=== PATIENT | female | born 1940 | race Caucasian/White ===

== ENCOUNTER → 2017-07-07 10:08 | Outpatient (CLI) | payer MEDICARE, OTHER, SELFPAY ==
[2017-07-07 12:33] LABS: Vitamin D,25 Hydroxy 48.9 ng/mL (29.95-100.01)
[2017-07-07 12:34] LABS: Anion Gap 7 (5-15); BUN 12 mg/dL (7-18); BUN/Creat Ratio 14.2 RATIO (10-20); Calcium,Total 9.3 mg/dL (8.5-10.1); Chloride 104 mmol/L (98-107); Cholesterol 136 mg/dL (200); Creatinine, Serum 0.85 mg/dL (0.55-1.02); EST Glomerular Filtration Rate 69 mL/min (>60); Est Glom Filt Rate - Afr Amer 84 mL/min (>60); Glucose 97 mg/dL (74-106); High Density Lipoprotein 48 mg/dL; Potassium 3.9 mmol/L (3.5-5.1); Sodium Level 141 mmol/L (136-145); Triglycerides 142 mg/dL; Very Low Density Lipoprotein 28 mg/dL (5-40)
== END ==
PROVIDERS: Family Provider Family Medicine; PCP Family Medicine; Visit Provider Family Medicine
DX: Z00.00 Encounter for general adult medical examination without abnormal findings (principal); E55.9 Vitamin D deficiency, unspecified
CPT/HCPCS: 36415; 80048; 80061; 82306

== ENCOUNTER 2017-09-20 14:00 | Outpatient (RCR) | payer MEDICARE, OTHER, SELFPAY ==
--- NOTE | 2017-09-20 14:47 | HP.PTEVAL_ITS ---
Patient's Visit Information VANDANA CEJA is a 76 year old F referred to Physical Therapy by Norbert Gusman MD with a diagnosis of Dizzyness and giddiness. Date of Evaluation: 09/20/17 Physical Therapist: NASEEM AmatoT, OC - Visit Plan Duration: 1x in 2-3 weeks Plan: F/u three weeks as patient is feeling good and asymptomatic recently even with 18 hples of golf. Has been consciously increasing fluid intake.. She will call prior if she feels worsening. Will recheck vestibular and D/C if maintaining her well status. - Subjective Subjective: In July started to get dizzy. Contacted Dr. Gusman and looked into dehydration as it happened during golfing. After 9 holes would get unsteady of self, no spinning. Has let up a little bit, played 18 holes yesterday without a problem. Drank a lot of water yesterday. Also later in day sometimes has to sit down. She asked for order for PT. Not positional. No extremity symptoms. Did have wax in one ear but nothing else found at doctor's office. Sleep is good. Activities are normal just tired after some of them. No falls. Does worse in the heat. - Objective Walks normal, transfers normal and ssafe, steps reciprocal without rail. No symptoms ellicited today in the eval. - B hallpike gus and - roll test. Oculomotor: normal convergence, -skew eye deviation. Pursuit and saccades are normal, VOR is normal, VOR x 2 is normal and all asymptomatic. - head thrust. VOR walking is good. Balance is good. - Balance Scores Functional Gait Assessment Score: 30 % Disability: 0 - Goals Goal 1:: maintain full improvement and activity level Goal Time Frame: 2-4 Weeks - Rehabilitation Potential Physical Therapy Diagnosis: H/o dizzyness and giddiness. Rehabilitation Potential: Fair - Anticipated Interventions Patient/Client Instruction: Educate patient on: Condition, Plan of Care For the Purpose of:: To reduce risk of recurrence Comment: vestibular if needed. For the Purpose of:: To reduce risk of recurrence Thank you for the opportunity to evaluate your patient. For Medicare and Medicare HMO plans, please review the plan of care and approve it. It will need to be FAXED BACK to us at [phone] for Medicare purposes. Please let me know if there are questions or concerns regarding this plan of care. Physician Signature: Date:
--- NOTE | 2017-11-21 10:53 | HP.PT.NRP ---
HP - Discharge Summary (1) - Patient Information VANDANA CEJA was seen in my office for initial evaluation on 09/20/17. The following Plan of Care was established for this patient: Initial Duration: 1x in 2-3 weeks - Anticipated Interventions Patient/Client Instruction: Educate patient on: Condition, Plan of Care For the Purpose of:: To reduce risk of recurrence For the Purpose of:: To reduce risk of recurrence This patient was last seen in our office 09/20/17. Pertinent comments regarding their Physical therapy will appear below: Patient seen for eval and was doing well on that day. She was to f/u three weeks later to ensure continued abatement of symptoms. She did nto attend. That was two months ago and I will discontinue from PT at this time. At this point I will be discontinuing this patient from physical therapy. I would be happy to see this patient again in the future if found appropriate by the physician. Thank you! Norbert Pleitez, DPT, OC
== END 2017-09-20 19:00 | disposition home or self-care (01) ==
LOC: PT 14:00
PROVIDERS: Family Provider Family Medicine; PCP Family Medicine; Visit Provider Otolaryngology
DX: R42 Dizziness and giddiness (principal)
CPT/HCPCS: 97162

== ENCOUNTER → 2018-07-25 13:35 | Outpatient (CLI) | payer MEDICARE, OTHER, SELFPAY ==
[2018-07-05 10:47] VITALS: BMI 22.0
--- NOTE | 2018-07-25 13:40 | BI_ITS ---
MAMMOGRAPHY - BILATERAL SCREENING REASON FOR EXAM: Female, 77 years old. Routine annual screening examination. PERTINENT HISTORY: Non-contributory. Remote left excisional breast biopsy. TECHNIQUE: Digital bilateral breast rachel (3D mammographic acquisition) in the CC and MLO projections. 2-D mediolateral oblique (MLO) and craniocaudad (CC) views of both breasts were obtained. CAD: Full Field Digital Mammography with Computer Added Detection was performed. COMPARISON: Comparison is made with priors dated December 15, 2016 and November 25, 2015. FINDINGS: Breast Composition: There are scattered areas of fibroglandular density. There are no dominant masses or suspicious calcifications. Stable asymmetry in the deep mid lateral aspect of the left breast. This may be the site of prior excisional biopsy. Stable appearance of the small bilateral axillary lymph nodes. No other significant abnormalities are identified. There has been no significant change since the prior study. BI/SCREENING MAMM (CAD), BILAT IMPRESSION: Stable bilateral screening mammogram. Yearly follow-up mammogram recommended. (A) ASSESSMENT CATEGORY: BIRADS Category 2: Benign. A letter regarding these results will be sent to the patient by the facility within 30 days. Approximately 10% of breast cancers are not detected by mammography. A normal mammogram should not delay biopsy of a clinically suspicious abnormality. [id number] Electronically Signed: Onesimo Joyner, at 15:29 EDT , Service support ,
== END ==
PROVIDERS: Family Provider Family Medicine; PCP Family Medicine; Referring Provider Family Medicine; Visit Provider Family Medicine
DX: Z12.31 Encounter for screening mammogram for malignant neoplasm of breast (principal)
CPT/HCPCS: 77063; 77067

== ENCOUNTER 2018-10-11 08:53 | Inpatient (IN) | payer MEDICARE, OTHER, SELFPAY ==
[2018-07-25 14:52] VITALS: BMI 22.0
[2018-10-01 13:34] VITALS: BMI 22.0
--- NOTE | 2018-10-05 14:19 | EKG12_ITS ---
Test Reason : PRE OP Blood Pressure : / mmHG Vent. Rate : 068 BPM Atrial Rate : 068 BPM P-R Int : 172 ms QRS Dur : 084 ms QT Int : 418 ms P-R-T Axes : 046 039 052 degrees QTc Int : 444 ms Normal sinus rhythm ST abnormality, possible digitalis effect Abnormal ECG Confirmed by ABHI YEE ([id number]), supervising editor news reel OSCAR WILLETT ([id number]) on 10/08/2018 1:09:21 PM Referred By: Araceli Griffin Confirmed By:ABHI YEE
[2018-10-05 14:39] LABS: Hematocrit 43.1 % (37-47); Hemoglobin 14.1 g/dL (12.0-15.0); Mean Corp Hgb Conc 32.7 g/dL (32-36); Mean Corpuscular Hgb 29.9 pg (27.0-32.0); Mean Corpuscular Volume 91.5 fL (81-99); Platelet Count 343 K/mm3 (150-450); RBC Distribution Width CV 12.9 % (11.6-14.6); RBC Distribution Width SD 43.8 fl (35.1-43.9); Red Blood Count 4.71 M/mm3 (4.2-5.4); White Blood Count 6.7 K/mm3 (4.4-11.0)
[2018-10-05 14:55] LABS: Anion Gap 7 (5-15); BUN 15 mg/dL (7-18); BUN/Creat Ratio 17.7 RATIO (10-20); Calcium,Total 9.2 mg/dL (8.5-10.1); Chloride 100 mmol/L (98-107); Creatinine, Serum 0.85 mg/dL (0.55-1.02); EST Glomerular Filtration Rate 69 mL/min (>60); Est Glom Filt Rate - Afr Amer 84 mL/min (>60); Glucose 113 mg/dL (74-106); Potassium 3.5 mmol/L (3.5-5.1); Sodium Level 135 mmol/L (136-145)
[2018-10-11] VITALS (10 sets, daily range): BP systolic 95–134; BP diastolic 46–71; PULSE 60–85; RESP 16–18; TEMP 36.1–36.7; O2SAT 93–100; BMI 22.0; BMI 23.9
[2018-10-11] MEDS: Gabapentin 600 MG Tablet PO (07:25)
[2018-10-11] MEDS: Acetaminophen 500 MG Tablet 1000 MG PO ×2 (07:26→18:20)
[2018-10-11] MEDS: Celecoxib 200 MG Capsule 400 MG PO (07:26)
[2018-10-11] MEDS: Enoxaparin 40 MG/0.4 ML Syringe SC (07:27)
[2018-10-11] MEDS: Scopolamine 1mg/72hr Patch 1 PATCH TRANSDERM. (07:27)
[2018-10-11] MEDS: Lactated Ringers 1,000 ML 40 ML IV (07:32)
[2018-10-11] MEDS: dexAMETHasone 10 MG/ML Vial 8 MG IV (07:33)
[2018-10-11] MEDS: Magnesium Sulfate 4gm/100mL 4 GM/100 ML IV.SOLN. IV (07:33)
--- NOTE | 2018-10-11 07:34 | PCM.HP.STD ---
Problem List (1) Cystocele with incomplete uterovaginal prolapse Status: Acute Comment: tvh bso combo case with miguel angel History of Present Illness Date of Admission: 10/11/18 Chief Complaint: prolapse The patient is a 77 year old F presents with pelvic organ prolapse, planned hysterectomy and reconstruction. 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 Allergies cephalexin Allergy (Unknown, Verified 10/11/18 07:04) Unknown Home Medications: Ambulatory Orders Medication Instructions Recorded doxepin 10 mg capsule 10 mg PO QHS 07/05/18 simvastatin 10 mg tablet 10 mg PO QHS 07/05/18 triamterene 37.5 1 cap PO DAILY 07/05/18 mg-hydrochlorothiazide 25 mg capsule Estradiol See Rx Instructions VAGINAL MOWEFR 10/05/18 Surgical History: Surgical History (Last Reviewed 10/01/18 @ 13:34 by Inga Sparks) H/O tubal ligation Z98.51 Smoking Status: Never smoker Tobacco Use: Non-smoker Review of Systems Constitutional: Denies: Fever, Malaise Eyes: Denies: Blurred vision, Vision Change HEENT: Denies: Head Aches, Visual Changes Cardiovascular: Denies: Chest Pain, Palpitations Respiratory: Denies: Cough, Shortness of Breath, Wheezing Gastrointestinal: Denies: Abdominal Pain, Diarrhea, Nausea, Vomiting Genitourinary: Denies: Dysuria, Hematuria Musculoskeletal: Denies: Joint Pain, Muscle pain Skin: Denies: Lesions, Rash Neurological: Denies: Blurred vision, Focal weakness, Headaches Psychiatric: Denies: Anxiety, Depression Endocrine: Denies: Heat/ Cold Intolerance Hematologic/ Lymphatic: Denies: Easy Bruising, Easy Bleeding VTE Information - Inpt Only VTE Present on Admission: No - Physical Exam General: Alert, Oriented x3 HEENT: Atraumatic, Normocephalic Oral: Moist Mucosa Neck: Supple, Trachea Midline, Thyroid Normal Size and Texture Lungs: Clear to auscultation, Normal air movement Cardiovascular: Regular rate, Regular Rhythm Abdomen: Soft, Non Tender, Non-Distended Extremities: No edema Skin: No rashes Musculoskeletal: No Tenderness to Palpation of Joints or Extremities, No Muscle Wasting Neurological: Neuro grossly intact Psych/Mental Status: Normal Affect Vital Signs Temp Pulse Resp BP Pulse Ox 98.0 F 85 16 134/56 H 100 10/11/18 07:14 10/11/18 07:14 10/11/18 07:14 10/11/18 07:14 10/11/18 07:14 Oxygen Delivery Method Room Air Weight: 134 lb 11.239 oz Body Mass Index (BMI) 22.0 Assessment/Plan All Active Problems (Last Reviewed 10/01/18 @ 13:40 by Araceli Griffin MD) Cystocele with incomplete uterovaginal prolapse (Acute) Assessment & Plan Problems 1. Cystocele with incomplete uterovaginal prolapse N81.2 tvh bso combo case with miguel angel Plan discussed surgical risks including risks of anesthesia, infection, bleeding, injury to bowel, bladder or blood vessels, and patient wishes to proceed with surgery. UPDATE- I have seen the patient and performed any clinically relevant updates to the history and physical exam. Araceli Griffin MD
[2018-10-11 07:36] LABS: Bedside Glucose 219 mg/dL (70-110)
--- NOTE | 2018-10-11 08:30 | HYST_PTH ---
PATIENT: VANDANA CEJA LOC: [facility] U#:[id number] AGE/SX: 77/F ROOM: [facility]323 RE10/11/[address]: Dr. Araceli Griffin MD : 1940 BED: 1 DIS: 10/12/2018 SPEC #: [id number] RECD: 10/11/18 13:02 STATUS: HANK MENA #: [id number] SHAHLA: 10/11/18 08:[address]: Araceli Griffin DEPT: SURGICAL PATHOLOGY RECD BY: Nico Shafer ENTERED: 10/11/18 13:52 SP TYPE: HYSTERECT OTHR DR: MD Dr. Nathaniel Means MD Tissues: Uterus, NOS Procedures: Surgery Specimen Level V HEADER OPERATION: ERAS, vaginal hysterectomy, BSO PRE-OP DIAGNOSIS: Cystocele with incomplete uterovaginal prolapse status TISSUE SUBMITTED: Uterus, bilateral fallopian tubes and ovaries MICROSCOPIC DIAGNOSIS Uterus, bilateral fallopian tubes and ovaries, vaginal hysterectomy and bilateral salpingo-oophorectomy: Cervix - chronic inflammation and squamous metaplasia. Endometrium - weakly proliferative endometrium with extensive cystic changes. Myometrium - intramural leiomyoma with extensive calcification (3 cm in diameter). - Focal adenomyosis. Bilateral fallopian tubes - no pathologic diagnosis. Bilateral ovaries - no pathologic diagnosis. SJ:latoya 10/17/18 MICROSCOPIC DESCRIPTION Slides are reviewed. GROSS DESCRIPTION Received in fixative is one container labeled with the patient's name and designated uterus. The specimen consists of a uterus with attached cervix measuring 9 x 5.5 x 4.2 cm and weighing 85 gm. The uterus has been previously opened in its anterior portion. The ectocervix is grossly unremarkable. The cervical os is oval in contour. The endocervical canal measures 3.4 cm in length and is grossly unremarkable. The triangular endometrial cavity measures 4.2 x 3.3 cm. The velvety, light ventura endometrium measures 0.2 cm in average thickness. The anterior myometrium contains a firm, calcified pink-yellow nodule measuring 3 cm in diameter. The cut surface of this calcified nodule is yellow-white in color. No soft tissue is evident within the center of the lesion. Also present free in the container are two unoriented fallopian tube fragments and ovaries. Both fallopian tubes contain normal fimbriated ends. Both fallopian tubes have an average length of 4 cm and maximal diameter of 0.7 cm. Both fallopian tubes are disrupted consistent with previous tubal ligation. Each ovary measures 1.5 x 1 x 0.8 cm. Sections reveal unremarkable cut surfaces. Baked Goods Stock Clerk sections are submitted in 10 cassettes as follows: 1 - anterior cervix, 2 - posterior cervix, 3 & 4 - anterior uterine wall, 5 & 6 - posterior uterine wall, 7 & 8 - calcified myometrial nodule after decalcification, 9 - one fallopian tube and ovary, 10 - second fallopian tube and ovary. / AM:latoya 10/11/18 TC:1 CPT: 46958,62284
--- NOTE | 2018-10-11 08:44 | PCM.OPRPT ---
Problem List (1) Cystocele with incomplete uterovaginal prolapse Status: Acute Comment: tvh bso combo case with miguel angel (2) Stress incontinence Status: Acute (3) Vaginal atrophy Status: Acute Report of Operation Date of Procedure: 10/11/18 Pre-Operative Diagnosis: incomplete uterovaginal prolapse, stress urinary incontinence, vaginal atrophy Post-Operative Diagnosis: same Surgery/Procedure Performed:: anterior repair, sacrospinous ligament fixation, perineoplasty, midurethral sling and cystoscopy with right ureteral catheterization. Description of Surgical Findings:: Anterior repair, perineoplasty, Altis mid urethral sling, right sacrospinous ligament fixation. On cystoscopy after the sling, the right ureter was intubated with a 5 Burkinan whistle-tip catheter and good urine output was achieved. On the left side the patient's ureteral orifice was very small and was unable to be intubated. A urine jet was observed from this ureteral orifice. Type of Anesthesia:: General Special Medications: clindamycin and gentamicin, Methylene blue. Estimated Blood Loss (mL): 15cc Description of Procedure: The patient is a 77-year-old female with uterovaginal prolapse who underwent evaluation in the office with urodynamics and cystoscopy. After obtaining informed consent, she was taken to the operating room for surgical intervention in combination with Dr. Griffin. The patient was taken to the operating room and placed on the operating room table. Anesthesia monitored the head, neck, airway, IV access and vital signs throughout the case. Once anesthesia was appropriately administered the patient was prepped and draped in usual sterile fashion. She was placed into exaggerated dorsal lithotomy in Trendelenburg position. A 16 Burkinan Dotson catheter was inserted and her urinary bladder was drained. The case was then turned over to Dr. Griffin and a vaginal hysterectomy and bilateral oophorectomy were performed. Dr. Griffin then closed the vaginal cuff and the case was turned to nv. The anterior vaginal wall was injected submucosally with vasopressin for hydrostatic dissection and hemostatic control. A midline vertical incision approximately 2 cm in length was then made. Both sharp and blunt dissection was performed until the pubocervical fascia was identified bilaterally. On the right side dissection continued until the initial spine was palpable in the sacral spinous ligament was identified and freed from surrounding tissues. The Harpreet SlimLine was then used to gain access to the right sacrospinous ligament and this was brought through full-thickness fashion in the apex of the vagina. Attention was then turned toward the pubocervical fascia which was brought together in a 2 layer closure with 2-0 Vicryl suture. The anterior vaginal wall was then closed with running 2-0 Vicryl. Attention was then turned towards the perineum. The posterior vaginal wall defect was not as substantial as the anterior vaginal wall defect. Attention was turned toward the perineal body. The overlying submucosa was dissected away and the rectovaginal fascia was brought together in a symmetric fashion giving support to the perineal body. The vaginal mucosa was then closed over the repair using 2-0 Vicryl in running interlocking fashion. At this time the mid urethra was identified and once again injected submucosally. A midline vertical 1 cm incision was made in both sharp and blunt dissection ensued on either side of the urethra with care being taken to avoid entrance into the urethra. Using the trochars and the alto's mid urethral sling, the tines were passed bilaterally into the obturator complexes without difficulty. The sling was tensioned against the urethra without pressure. The tensioning suture was then cut and the mucosa was closed using running interlocking 2-0 Vicryl. At this time the patient had been given intravenous methylene blue but remained dehydrated as there was not much urine in her Dotson catheter bag. The catheter was removed and a cystourethroscopy revealed no entry into the urethra or the urinary bladder with any foreign body including suture or mesh. At this time no urine was seen coming from either ureteral orifice and fluid administration increased. A 5 Burkinan whistle-tip catheter was inserted without difficulty to 25 cm and good urine was seen coming from the ureteral catheter. On the patient's left side the positioning of the ureteral orifice and its size made access to the ureter difficult. I was unable to pass a whistle-tip or 8.035 Glidewire into the ureteral orifice. Upon waiting, 2 ureteral jets were observed from this ureter. At this time I feel confident that the ureter is intact. The Dotson catheter was replaced to the vagina was packed with vaginal packing and Premarin cream. The patient was cleaned and awakened and taken the recovery room in good condition. There were no complications during the procedure. Grafts/Implants Used: Altis mid urethral sling - Complications None - Admit VTE Documentation VTE Present on Admission: Yes VTE Mechan Device Prophylaxis: SCD's VTE Pharm Prophylaxis ordered?: Yes
--- NOTE | 2018-10-11 08:46 | DCINST_ITS ---
Discharge Diet: No Restrictions Discharge Activity: May not drive while taking narcotic pain medications., May Shower Additional Activity Instructions:: no strenuous activity, no lifting over 5 pounds, no driving for 2 weeks, no exercise, nothing per vagina except estrogen cream, no intercourse Call your doctor if you observe: Fever of 101 or Higher, Inability to urinate, Inability to have a bowel movement, Shortness of breath, Chest pain, Calf discomfort, Uncontrolled pain Allergies/Adverse Reactions: Allergies cephalexin Allergy (Unknown, Verified 10/11/18 13:24) Diarrhea GAVE HER CDIFF Medications to take at Discharge doxepin 10 mg capsule 10 mg PO QHS 07/05/18 simvastatin 10 mg tablet 10 mg PO QHS 07/05/18 triamterene 37.5 mg-hydrochlorothiazide 25 mg capsule 1 cap PO DAILY 07/05/18 Estradiol See Rx Instructions VAGINAL MOWEFR 10/05/18 Ibuprofen [Motrin] 600 mg PO Q6H PRN PRN #30 tab 10/11/18 Oxycodone HCl/Acetaminophen [Percocet 5-325] 1 - 2 tab PO Q4H PRN PRN 7 Days #15 tab 10/11/18 The following prescriptions were given: Ibuprofen [Motrin] 600 mg PO Q6H PRN PRN #30 tab PRN Reason: Pain Transmission Status: Received by [facility] Oxycodone HCl/Acetaminophen [Percocet 5-325] 1 - 2 tab PO Q4H PRN PRN 7 Days #15 tab PRN Reason: Pain Transmission Status: Received by [facility] Primary Care Physician: Nathaniel Escamilla MD [Primary Care Provider] - Test Results: Test results from this visit will be discussed in further detail at your follow- up appointment, if applicable. Please Follow Up With: Anna Muñoz MD When: call office for appt Proposed Discharge Date: 10/12/18
--- NOTE | 2018-10-11 08:51 | PCM.OPRPT ---
Problem List (1) Cystocele with incomplete uterovaginal prolapse Status: Acute Comment: tvh bso combo case with miguel angel Report of Operation Date of Procedure: 10/11/18 Pre-Operative Diagnosis: prolapse Post-Operative Diagnosis: same Surgery/Procedure Performed:: tvh bso Description of Surgical Findings:: prolapsed uterus property management coordinator: Anna Michelle Type of Anesthesia:: General Special Medications: none Specimen's removed: uterus tubes ovaries Drains: blunt Estimated Blood Loss (mL): 100 Fluids Replaced: crystalloid Description of Procedure: Patient was taken to the operating room and was placed under general anesthesia was prepped and draped in normal sterile fashion in the dorsal lithotomy position. Preoperative antibiotics and SCDs and Blunt catheter was placed inside the bladder. Weighted speculum was placed in the vagina and the anterior and posterior lip of the cervix was grasped with 2 Abby clamps and circumferentially injected with dilute vasopressin. A circumferential incision was made with a scalpel and the posterior cul-de-sac was entered into sharply and a longneck speculum was placed. The anterior cul-de-sac was also dissected down and entered into sharply and the uterosacral ligaments were clamped cut and suture ligated bilaterally followed by the cardinal ligaments which were Clamped cut and suture ligated bilaterally with 0 Monocryl. The uterus serially descended and progressive bites were taken bilaterally up to the level of the utero-ovarian ligament bilaterally which was clamped transected and double ligated with 0 Monocryl suture and 0 Vicryl free tie. Bilateral fallopian tubes and ovaries were well visualized and noted be within normal limits and the bilateral fallopian tubes and ovaries were transected across the base with a chayito clamp and removed and sutured with 0 monocryl and Vicryl suture. Excellent hemostasis was noted. The vagina was closed with [id number] 0 Vicryl pop offs including the posterior and anterior peritoneum in the reapproximation. Excellent hemostasis was noted. at this point the procedure was turned over to dr michelle please see her dictation for additional details. Grafts/Implants Used: sling - Complications none - Admit VTE Documentation VTE Present on Admission: No
--- NOTE | 2018-10-11 08:59 | DCINST_ITS ---
Discharge Diet: No Restrictions Discharge Activity: May not drive while taking narcotic pain medications., May Shower May resume sexual activity in: 6-8 weeks Additional Activity Instructions:: no strenuous activity, no lifting over 5 pounds, no driving for 2 weeks, no exercise, nothing per vagina except estrogen cream, no intercourse Call your doctor if your incision/area has: Continuous Slow Oozing, Sudden Increased Bleeding, Increased Pain/ Swelling, Increased Redness, Foul Smelling Discharge Call your doctor if you observe: Fever of 101 or Higher, Inability to urinate, Inability to have a bowel movement, Shortness of breath, Chest pain, Calf discomfort, Uncontrolled pain Allergies/Adverse Reactions: Allergies cephalexin Allergy (Unknown, Verified 10/11/18 07:04) Unknown Medications to take at Discharge doxepin 10 mg capsule 10 mg PO QHS 07/05/18 simvastatin 10 mg tablet 10 mg PO QHS 07/05/18 triamterene 37.5 mg-hydrochlorothiazide 25 mg capsule 1 cap PO DAILY 07/05/18 Estradiol See Rx Instructions VAGINAL MOWEFR 10/05/18 Primary Care Physician: Nathaniel Escamilla MD [Primary Care Provider] - Test Results: Test results from this visit will be discussed in further detail at your follow- up appointment, if applicable. Please Follow Up With: Anna Muñoz MD When: call office for appt
[2018-10-11] MEDS: Lubricating Jelly 60 GM Tube 30 GM TOPICAL (09:00)
[2018-10-11] MEDS: Vasopressin 20 UNITS/ML Vial (11:00)
[2018-10-11] MEDS: Estrogens,Conj. 1 Tube 1 DOSE (11:30)
[2018-10-11 11:50] LABS: Bedside Glucose 142 mg/dL (70-110)
--- NOTE | 2018-10-11 13:46 | NURSING ---
Clear liquids given to pt. Has drank half of a Liter of water already my mouth is dry. Transitional Diet menu given and explained that if she can keep clear liquids down then pt can order from Transitional menu.
[2018-10-11] MEDS: Lactated Ringers 1,000 ML 70 ML IV (14:31)
--- NOTE | 2018-10-11 14:55 | NURSING ---
Pt up to chair at this time. felt good. Pt stood at edge of chair for a few minutes, felt Rt leg was aching but with movement was feeling better.
--- NOTE | 2018-10-11 15:52 | NURSING ---
Walking jimenez with CREATIVE DIRECTOR at this time.
[2018-10-11] MEDS: Triamterene 37.5MG/Hctz 25MG Capsule 1 CAP PO (16:04)
[2018-10-11 16:26] LABS: Bedside Glucose 191 mg/dL (70-110)
--- NOTE | 2018-10-11 17:18 | NURSING ---
This nurse called Dr. Vincent regarding pts blood sugar of 191. Someone else besides Dr. Vincent answered and said, can she call you back in 5 min. This nurse will wait for her call back.
--- NOTE | 2018-10-11 18:44 | NURSING ---
Went for another walk in the [place]imenez. Second time today.
[2018-10-11] MEDS: Atorvastatin Calcium 10 MG Tablet 5 MG PO (22:04)
[2018-10-11] MEDS: Doxepin Hydrochloride 10 MG Capsule PO (22:04)
[2018-10-11] MEDS: Docusate Sodium 100 MG Capsule PO (22:05)
[2018-10-12 02:28] VITALS: BP 123/59; PULSE 64; RESP 16; TEMP 36.5; O2SAT 99
[2018-10-12] MEDS: Lactated Ringers 1,000 ML 70 ML IV (05:15)
[2018-10-12 06:34] LABS: Hematocrit 34.5 % (37-47); Mean Corp Hgb Conc 34.8 g/dL (32-36); Mean Corpuscular Hgb 30.5 pg (27.0-32.0); Mean Corpuscular Volume 87.8 fL (81-99); Mean Platelet Vol. 9.6 fl (6.2-12.0); Platelet Count 288 K/mm3 (150-450); RBC Distribution Width CV 12.3 % (11.6-14.6); RBC Distribution Width SD 39.5 fl (35.1-43.9); Red Blood Count 3.93 M/mm3 (4.2-5.4); White Blood Count 19.4 K/mm3 (4.4-11.0)
--- NOTE | 2018-10-12 08:15 | PCM.PN.GU ---
Physical Exam Subjective: Feeling great this morning! Has not needed any pain medications, has ambulated a few times already and is anxious to get home today. She has taken an oral fluids and had a turkey sandwich for dinner last night. No nausea or vomiting. The Tylenol is making her feel a little dizzy. - Physical Exam Vital Signs Temp 97.7 F L 10/12/18 02:28 Pulse 64 10/12/18 02:28 Resp 16 10/12/18 02:28 BP 123/59 H 10/12/18 02:28 Pulse Ox 99 10/12/18 02:28 Intake & Output 10/10/18 10/11/18 10/12/18 23:59 23:59 23:59 Intake Total 4142 / 4879 1522 / 1522 Output Total 575 / 2225 2750 / 2750 Balance 3567 / 2654 -1228 / -1228 Weight: 66.224 kg Intake: Oral 1541 / 1841 700 / 700 IV fluid/meds 2601 / 3038 822 / 822 IV #3 2300 / 2300 Output: Urine 575 / 2225 2750 / 2750 General: Alert, Oriented x3, Cooperative, No apparent distress HEENT: Atraumatic, Normocephalic Oral: Moist Mucosa Neck: Supple, Trachea Midline Lungs: Normal air movement Cardiovascular: Regular rate Abdomen: Soft, Non Tender, - - Dotson catheter and vaginal tacking removed without an issue. The urine in the Dotson is clear Rectal: Exam deferred Skin: No rashes Neurological: Cranial nerves II-XII grossly intact Laboratory Tests Past 24 Hrs 10/12/18 06:24 WBC 19.4 H RBC 3.93 L Hgb 12.0 Hct 34.5 L MCV 87.8 MCH 30.5 MCHC 34.8 RDW Std Deviation 39.5 RDW Coeff of Marquita 12.3 Plt Count 288 MPV 9.6 Medical Necessity - Tobacco Use Smoking Status: Never smoker Tobacco Use: Non-smoker Assessment/Plan All Active Problems (Last Reviewed 10/01/18 @ 13:40 by Araceli Griffin MD) Stress incontinence (Acute) Vaginal atrophy (Acute) Cystocele with incomplete uterovaginal prolapse (Acute) Await void with PVR Home today with Bactrim for 3 days and continuing estrogen cream
[2018-10-12 09:48] VITALS: BP 99/47; PULSE 69; RESP 16; TEMP 36.7; O2SAT 97
[2018-10-12] MEDS: Docusate Sodium 100 MG Capsule PO (10:00)
[2018-10-12] MEDS: Enoxaparin 40 MG/0.4 ML Syringe SC (10:03)
[2018-10-12 11:23] VITALS: BP 115/52; PULSE 58; RESP 16; TEMP 36.6; O2SAT 100
[2018-10-12] MEDS: Triamterene 37.5MG/Hctz 25MG Capsule 1 CAP PO (11:25)
--- NOTE | 2018-10-12 12:49 | CASEMGMT ---
RN CM Assessment Presentation: Cystocele with incomplete uterovaginal prolapse Intro role of CM and purpose of RN CM assessment. Demographics, PCP and Pharmacy verified. PCP: Dr. Nathaniel Escamilla Specialists: Dr. Muñoz Preferred Pharmacy: [facility] Insurance: [facility] Prescription Benefit: yes LNOK: Attila Torres Living Arrangements: Lives independently. No care needs identified. Family can assist on dc if needed. Transportation: drives, however pt states can drive if needed. DME: none HHC: none Patient DC goals: Home DC PLAN: Kevin HE RN ACM
--- NOTE | 2018-10-12 13:53 | PCM.PN.OB ---
Patient Problems: Active and Suspected Problems (Last Reviewed 10/01/18 @ 13:40 by Araceli Griffin MD) Stress incontinence (Acute) Vaginal atrophy (Acute) Subjective: doing well pain controlled - Physical Exam General: Alert, Oriented x3 Vital Signs Temp Pulse Resp BP Pulse Ox 97.8 F 58 L 16 115/52 L 100 10/12/18 11:23 10/12/18 11:23 10/12/18 11:23 10/12/18 11:23 10/12/18 11:23 Oxygen Flow Rate (L/min) 2 Oxygen Delivery Method Room Air Weight: 146 lb Body Mass Index (BMI) 23.9 Intake and Output for Last 24 Hours 10/10/18 10/11/18 10/12/18 23:59 23:59 23:59 Intake Total 4142 / 4879 2890 / 2890 Output Total 575 / 2225 3150 / 3150 Balance 3567 / 2654 -260 / -260 Laboratory Tests Past 24 Hrs 10/12/18 06:24 WBC 19.4 H RBC 3.93 L Hgb 12.0 Hct 34.5 L MCV 87.8 MCH 30.5 MCHC 34.8 RDW Std Deviation 39.5 RDW Coeff of Marquita 12.3 Plt Count 288 MPV 9.6 POC Glucose 10/11/18 16:18 POC Glucose 191 H Medical Necessity - Tobacco Use Smoking Status: Never smoker Tobacco Use: Non-smoker Assessment/Plan All Active Problems (Last Reviewed 10/01/18 @ 13:40 by Araceli Griffin MD) Stress incontinence (Acute) Vaginal atrophy (Acute) Cystocele with incomplete uterovaginal prolapse (Acute) s/p tvh bso routine care pr home
[2018-10-12 14:02] VITALS: BP 118/60; PULSE 82; RESP 16; TEMP 36.7; O2SAT 100
== END 2018-10-12 14:00 | disposition home or self-care (01) | DRG 743 ==
LOC: MS3 10-12 07:33
PROVIDERS: Urology; Admitting Provider Obstetrics & Gynecology; Family Provider Family Medicine; PCP Family Medicine; Referring Provider Obstetrics & Gynecology; Visit Provider Obstetrics & Gynecology
PROC: 0UT97ZZ Resection of Uterus, Via Natural or Artificial Opening (ICD-10-PCS; CPT 58260; principal; 2018-10-11 08:10)
PROC: 0JQC0ZZ Repair Pelvic Region Subcutaneous Tissue and Fascia, Open Approach (ICD-10-PCS; CPT 57260; 2018-10-11 08:10)
DX: N81.2 Incomplete uterovaginal prolapse (principal); N95.2 Postmenopausal atrophic vaginitis; N39.3 Stress incontinence (female) (male); H81.09 Meniere's disease, unspecified ear; E78.00 Pure hypercholesterolemia, unspecified; Z98.51 Tubal ligation status; N80.0 Endometriosis of uterus; N72 Inflammatory disease of cervix uteri; D26.1 Other benign neoplasm of corpus uteri
CPT/HCPCS: 36415; 80048; 82962; 85027; 86850; 86900; 88307; 93005; J7120; C1758; J2405; Q9968

== ENCOUNTER → 2018-12-11 09:18 | Outpatient (CLI) | payer MEDICARE, OTHER, SELFPAY ==
[2018-10-30 09:23] VITALS: BMI 23.9
[2018-12-11 10:30] LABS: Cholesterol 154 mg/dL (200); High Density Lipoprotein 42 mg/dL; Triglycerides 246 mg/dL; Very Low Density Lipoprotein 49 mg/dL (5-40)
== END ==
PROVIDERS: Family Provider Family Medicine; PCP Family Medicine; Referring Provider Family Medicine; Visit Provider Family Medicine
DX: E78.5 Hyperlipidemia, unspecified (principal)
CPT/HCPCS: 36415; 80061

== ENCOUNTER → 2019-10-14 14:34 | Outpatient (CLI) | payer MEDICARE, OTHER, SELFPAY ==
[2018-10-30 09:23] VITALS: BMI 23.9
--- NOTE | 2019-10-14 14:37 | BI_ITS ---
MAMMOGRAPHY - BILATERAL SCREENING 3-D TOMOSYNTHESIS REASON FOR EXAM: Female, 78 years old. Routine screening PERTINENT HISTORY: NO FAM HX -- QUIT PREMARIN CR -- BILAT KERATOSIS MARKED -LARGEST -- LT EXC BX 20+ YRS AGO -- LOST 10#. TECHNIQUE: 2-D mammograms and 3-D Tomosynthesis of the breast (s) were performed. CAD was performed. COMPARISON: 07/25/2018 FINDINGS: The breast composition is composed of scattered fibroglandular density. Scattered benign calcifications are seen. No dense spiculated masses or suspicious microcalcifications are identified. No architectural distortion is identified. There is no skin thickening or retraction. There has been no significant change since the prior study. BI/SCREEN MAMM (CAD) W/EVELYN BILAT IMPRESSION: No mammographic signs of malignancy. Routine yearly mammograms recommended. ASSESSMENT CATEGORY: BIRADS Category 1: Negative. A letter regarding these results will be sent to the patient by the facility within 30 days. FOLLOW UP RECOMMENDATION: Yearly follow up mammogram recommended. (A) Approximately 10% of breast cancers are not detected by mammography. A normal mammogram should not delay biopsy of a clinically suspicious abnormality. Electronically Signed: Eliseo Motta MD at 16:19 EDT , Service support ,
== END ==
PROVIDERS: PCP Family Medicine; Referring Provider Family Medicine; Visit Provider Family Medicine
DX: Z12.31 Encounter for screening mammogram for malignant neoplasm of breast (principal)
CPT/HCPCS: 77063; 77067

== ENCOUNTER → 2020-07-17 14:28 | Outpatient (CLI) | payer MEDICARE, OTHER, SELFPAY ==
[2018-10-30 09:23] VITALS: BMI 23.9
[2020-07-17 17:44] LABS: BUN 14 mg/dL (7-18); BUN/Creat Ratio 18.5 RATIO (10-20); Calcium,Total 9.4 mg/dL (8.5-10.1); Chloride 98 mmol/L (98-107); Cholesterol 150 mg/dL (200); Creatinine, Serum 0.76 mg/dL (0.55-1.02); EST Glomerular Filtration Rate 78 mL/min (>60); Est Glom Filt Rate - Afr Amer 95 mL/min (>60); Glucose 95 mg/dL (74-106); Potassium 3.9 mmol/L (3.5-5.1); Sodium Level 135 mmol/L (136-145); Triglycerides 129 mg/dL
[2020-07-17 17:45] LABS: Anion Gap 7 (5-15); High Density Lipoprotein 56 mg/dL; Thyroid Stim Hormone (TSH) 1.93 uIU/mL (0.358-3.74); Very Low Density Lipoprotein 26 mg/dL (5-40)
[2020-07-23 12:31] LABS: Vitamin D,25 Hydroxy 46.3 ng/mL
== END ==
PROVIDERS: PCP Family Medicine; Referring Provider Family Medicine; Visit Provider Family Medicine
DX: Z00.00 Encounter for general adult medical examination without abnormal findings (principal); E55.9 Vitamin D deficiency, unspecified; E78.5 Hyperlipidemia, unspecified
CPT/HCPCS: 36415; 80048; 80061; 82306; 84443

== ENCOUNTER → 2020-11-11 13:46 | Outpatient (CLI) | payer MEDICARE, OTHER, SELFPAY ==
[2018-10-30 09:23] VITALS: BMI 23.9
--- NOTE | 2020-11-11 13:48 | BI_ITS ---
MAMMOGRAPHY - BILATERAL SCREENING REASON FOR EXAM: Female, 79 years old. Routine annual screening examination. PERTINENT HISTORY: Non-contributory. Remote left excisional breast biopsy. TECHNIQUE: Digital bilateral breast evelyn (3D mammographic acquisition) in the CC and MLO projections. 2-D mediolateral oblique (MLO) and craniocaudad (CC) views of both breasts were obtained. CAD: Full Field Digital Mammography with Computer Added Detection was performed. COMPARISON: Comparison is made with prior examination 10/14/2019 and 07/25/2018. FINDINGS: Breast Composition: There are scattered areas of fibroglandular density. There are no dominant masses or suspicious calcifications. Stable benign appearing bilateral axillary lymph nodes. No other significant abnormalities are identified. There has been no significant change since the prior study. BI/SCRN MAMM (CAD)W/EVELYN BILAT IMPRESSION: Stable bilateral screening mammogram. Yearly follow-up mammogram recommended. (A) ASSESSMENT CATEGORY: BIRADS Category 2: Benign. A letter regarding these results will be sent to the patient by the facility within 30 days. Approximately 10% of breast cancers are not detected by mammography. A normal mammogram should not delay biopsy of a clinically suspicious abnormality. [id number] Electronically Signed: Onesimo Joyner MD at 14:38 EDT , Service support ,
== END ==
PROVIDERS: PCP Family Medicine; Referring Provider Family Medicine; Visit Provider Family Medicine
DX: Z12.31 Encounter for screening mammogram for malignant neoplasm of breast (principal)
CPT/HCPCS: 77063; 77067

== ENCOUNTER → 2021-08-27 | Outpatient (CLI) | payer MEDICARE, OTHER, SELFPAY ==
[2021-08-27 10:36] LABS: Anion Gap 8 (5-15); BUN 13 mg/dL (7-18); BUN/Creat Ratio 16.8 RATIO (10-20); Calcium,Total 9.6 mg/dL (8.5-10.1); Chloride 102 mmol/L (98-107); Creatinine, Serum 0.77 mg/dL (0.55-1.02); EST Glomerular Filtration Rate 76 mL/min (>60); Est Glom Filt Rate - Afr Amer 92 mL/min (>60); Glucose 111 mg/dL (74-106); Potassium 3.6 mmol/L (3.5-5.1); Sodium Level 139 mmol/L (136-145)
== END | disposition home or self-care (01) ==
LOC: MFPLAB 08:24
PROVIDERS: PCP Family Medicine; Visit Provider Family Medicine
DX: Z00.00 Encounter for general adult medical examination without abnormal findings (principal)
CPT/HCPCS: 36415; 80048

== ENCOUNTER → 2021-12-07 | Outpatient (CLI) | payer MEDICARE, OTHER, SELFPAY ==
--- NOTE | 2021-12-07 13:16 | BI_ITS ---
MAMMOGRAPHY - BILATERAL SCREENING REASON FOR EXAM: Female, 80 years old. Routine annual screening examination. PERTINENT HISTORY: Non-contributory. Remote left excisional breast biopsy. TECHNIQUE: Digital bilateral breast rachel (3D mammographic acquisition) in the CC and MLO projections. 2-D mediolateral oblique (MLO) and craniocaudad (CC) views of both breasts were obtained. CAD: Full Field Digital Mammography with Computer Added Detection was performed. COMPARISON: Comparison is made with prior study dated 11/11/2020 and 10/14/2019 FINDINGS: Breast Composition: There are scattered areas of fibroglandular density. There are no dominant masses or suspicious calcifications. Stable benign-appearing bilateral axillary lymph nodes. No other significant abnormalities are identified. There has been no significant change since the prior study. BI/SCREENING MAMM (CAD), BILAT IMPRESSION: Stable bilateral screening mammogram. Yearly follow-up mammogram recommended. (A) ASSESSMENT CATEGORY: BIRADS Category 2: Benign. A letter regarding these results will be sent to the patient by the facility within 30 days. Approximately 10% of breast cancers are not detected by mammography. A normal mammogram should not delay biopsy of a clinically suspicious abnormality. [id number] Electronically Signed: Onesimo Joyner MD at 14:59 EDT ,
--- NOTE | 2021-12-07 13:16 | BD_ITS ---
STUDY: DUAL ENERGY X-RAY ABSORPTIOMETRY / DXA REASON FOR EXAM: Female, 80 years old. M80.89 TECHNIQUE: Bone Mineral Density (BMD) measurements of lumbar spine and bilateral hips were obtained. COMPARISON: Comparison is made with prior study dated 11/25/2015. FINDINGS: Lumbar Spine (L1-L4): g/cm2 (0.990) / T-score (-0.6) / Z-score (2.2) Findings are suggestive of normal bone density with a low fracture risk. Left Femur Total: g/cm2 (0.764) / T-score (-1.5) / Z-score (0.7) Left Femoral Neck: g/cm2 (0.654) / T-score (-1.8) / Z-score (0.6) Right Femur Total: g/cm2 (0.796) / T-score (-1.2) / Z-score (0.9) Right Femoral Neck: g/cm2 (0.694) / T-score (-1.4) / Z-score (0.9) The T-Scores on the most recent prior examination were: Lumbar Spine (L1-L4): There has been worsening of bone density since the previous examination. Left Femur Total: which represents a worsening of 9.3%. Right Femur Total: which represents a worsening of 6.5%. BD/Dexa Bone Density Study IMPRESSION: The patient is considered osteopenic as outlined below according to World [employer] Organization (WHO) criteria with a moderate fracture risk. There has been worsening of bone density since the previous examination. Reference Information: The T-score is the number of standard deviations above or below the standard which is normal for young adults at their peak bone mineral density. The World Health Organization (WHO) interprets the T-scores as follows: Above -1 Normal bone density Between -1 and -2.5 Osteopenia Equal to / or below -2.5 Osteoporosis As a practical clinical guideline, osteopenia may be graded as follows: Mild -1 through -1.5 Moderate -1.6 through -2.0 Severe -2.1 through -2.4 The Z-score is the number of standard deviations above or below age-matched controls. A Z-score of less than -1.5 would be considered abnormal. References: 1. NIH Osteoporosis and Related Bone Diseases www osteo.org 2. International Society for Clinical Densitometry www iscd.org 3. National Osteoporosis Foundation www nof.org Electronically Signed: Onesimo Joyner MD at 10:20 EDT ,
== END | disposition home or self-care (01) ==
LOC: OPBD 13:15
PROVIDERS: PCP Family Medicine; Visit Provider Family Medicine
DX: Z12.31 Encounter for screening mammogram for malignant neoplasm of breast (principal); M85.89 Other specified disorders of bone density and structure, multiple sites; Z92.89 Personal history of other medical treatment
CPT/HCPCS: 77067; 77080

== ENCOUNTER → 2022-08-26 | Outpatient (CLI) | payer MEDICARE, OTHER, SELFPAY ==
[2022-08-26 11:18] LABS: Anion Gap 3 (5-15); BUN 16 mg/dL (7-18); BUN/Creat Ratio 19.1 RATIO (10-20); Calcium,Total 9.8 mg/dL (8.5-10.1); Chloride 103 mmol/L (98-107); Cholesterol 152 mg/dL (200); Creatinine, Serum 0.84 mg/dL (0.55-1.02); EST Glomerular Filtration Rate 69 mL/min (>60); Est Glom Filt Rate - Afr Amer 84 mL/min (>60); Glucose 103 mg/dL (74-106); High Density Lipoprotein 53 mg/dL; Sodium Level 136 mmol/L (136-145); Triglycerides 170 mg/dL; Very Low Density Lipoprotein 34 mg/dL (5-40)
== END | disposition home or self-care (01) ==
LOC: MFPLAB 08:31
PROVIDERS: PCP Family Medicine; Visit Provider Family Medicine
DX: Z00.00 Encounter for general adult medical examination without abnormal findings (principal)
CPT/HCPCS: 36415; 80048; 80061

== ENCOUNTER → 2022-10-18 | Outpatient (CLI) | payer MEDICARE, OTHER, SELFPAY | END | disposition home or self-care (01) | LOC: LABSPEC 15:18 | PROVIDERS: PCP Family Medicine; Referring Provider Family Medicine; Visit Provider Family Medicine | DX: N39.0 Urinary tract infection, site not specified (principal) | CPT/HCPCS: 87077; 87086; 87088; 87186 ==

== ENCOUNTER 2022-12-08 13:00 | Outpatient (RCR) | payer MEDICARE, OTHER, SELFPAY ==
--- NOTE | 2022-12-01 12:46 | HP.PTDCSUM ---
Discharge Summary D/C summary: It has been my pleasure to treat VANDANA CEJA referred by Dr. Isaiah Sims MD, with the diagnosis of vertigo for a total of 1 visit(s). Discharge Date: Please see the following information for a summary of their discharge status. Goals Goal 1:: abolish dizzyness with turning in bed Goal 2:: I management of condition Goal 3:: Pt feel 100% better wtih dizzyness and golf without symptoms Plan Plan: 1-2x/week for 2-4 as needed for positional monitorring and [id number] as needed. Next check R roll and HD and treat as needed. is rolling R in bed still a problem. D/C Information d/c sentence: If there are questions or concerns regarding this patient's physical therapy, please feel free to call me at [phone]. Thank you for the referral of this patient. Sincerely, Norbert Pleitez, DPT, OCS, CSCS Balance/Gait/Functional tests Balance/Special Test Scores Functional Gait Assessment Score: 29 % Disability: 3.3400 Dizziness Score: 32
--- NOTE | 2022-12-08 13:01 | HP.PTEVAL_ITS ---
Patient's Visit Information Visit Information Visit Information: VANDANA CEJA is a 81 year old F referred to Physical Therapy by Dr. Isaiah Sims MD with a diagnosis of vertigo. Date of Evaluation: 12/01/22 Physical Therapist: Norbert Pleitez, DPT, OCS, CSCS Visit Plan Frequency: 1-2x /Week Duration: 2-4 Weeks Plan: 1-2x/week for 2-4 as needed for positional monitorring and [id number] as needed. Next check R roll and HD and treat as needed. is rolling R in bed still a problem. Subjective Subjective: Vertigo is intermittent for her. It goes away for a while and then comes back. This latest time was golfing looking down and to the left and gets dizzy until she sits and rests. That was 2 weeks ago. None in last 2 weeks. Not typically happening at home. Can sit down and get rid of it. Can drive. Looking up reaching into cupboard has caused it. Described as short lived spinning. Will go to [facility] for winter. Activities are pretty normal, had to stop golfing one time. Wants to go sit down when it happens. maybe a bit nauseous. Every night lie to R and it will spin for a quick second. No falls. Objective Objective: Wal;ks normal into and out of PT with good balance. trasnfers I without UE. Steps reciprocal with one rail. Cervical aROM WFL and without pain. Sensation UE WNL to gross lgiht touch. UE AROM wFL and strength at 4-/5 - L HD, + R HD for quick up torsional nystagmus and tension for one second in response more to R roll test. Treated with modified Rasheeda adn then negative testing Balance/Special Test Scores Functional Gait Assessment Score: 29 % Disability: 3.3400 Dizziness Score: 32 Goals Goal 1:: abolish dizzyness with turning in bed Goal Time Frame: 2-4 Weeks Goal 2:: I management of condition Goal Time Frame: 2-4 Weeks Goal 3:: Pt feel 100% better wtih dizzyness and golf without symptoms Goal Time Frame: 2-4 Weeks Rehabilitation Potential Physical Therapy Diagnosis: BPPV. Rehabilitation Potential: Good Anticipated Interventions Patient/Client Instruction: Educate patient on: Condition and Plan of Care For the Purpose of:: To increase tolerance to activity/condition/position and To improve ability of physical actions for home/community/work/leisure Comment: positional, vestibular For the Purpose of:: To increase tolerance to activity/condition/position Text: Thank you for the opportunity to evaluate your patient. For Medicare and Medicare HMO plans, please review the plan of care and approve it. It will need to be FAXED BACK to us at [phone] for Medicare purposes. For Medicare only, by signing this I certify the plan of care. Please let me know if there are questions or concerns regarding this plan of care. Physician Signature: ____Date:
--- NOTE | 2022-12-08 13:16 | HP.PTDCSUM ---
Discharge Summary D/C summary: It has been my pleasure to treat VANDANA CEJA referred by Dr. Isaiah Sims MD, with the diagnosis of vertigo for a total of 2 visit(s). Discharge Date: 12/08/22 Please see the following information for a summary of their discharge status. Subjective Subjective: No dizzyness since she left. Life has been normal and she is very thankful. Overall Improvement % Improvement: 100 Objective Objective/Function: - B hallpike gus - roll test no dizzyness with sitting head to knees or coming back up. Walks in with good balance and very happy. Goals Goal 1:: abolish dizzyness with turning in bed Goal Progress: Goal Met Goal 2:: I management of condition Goal Progress: Goal Met Goal 3:: Pt feel 100% better wtih dizzyness and golf without symptoms Goal Progress: Goal Met Plan Plan: 1-2x/week for 2-4 as needed for positional monitorring and [id number] as needed. Next check R roll and HD and treat as needed. is rolling R in bed still a problem. D/C Information d/c sentence: If there are questions or concerns regarding this patient's physical therapy, please feel free to call me at [phone]. Thank you for the referral of this patient. Sincerely, Norbert Pleitez, DPT, OCS, CSCS Balance/Gait/Functional tests Balance/Special Test Scores Functional Gait Assessment Score: 29 % Disability: 3.3400 Dizziness Score: 32 Improvement % Improvement: 100
== END 2022-12-08 13:54 | disposition home or self-care (01) ==
LOC: PT 13:00
PROVIDERS: PCP Family Medicine; Visit Provider Otolaryngology
DX: R42 Dizziness and giddiness
CPT/HCPCS: 97161; 97530

== ENCOUNTER → 2022-12-14 | Outpatient (CLI) | payer MEDICARE, OTHER, SELFPAY ==
--- NOTE | 2022-12-14 14:27 | US_ITS ---
INDICATION: UTI EXAMINATION: US Kidney(s) complete (eg, kidneys and bladder) TECHNIQUE: Mejias scale and color doppler images were obtained of the kidneys. COMPARISON: None. FINDINGS: RIGHT KIDNEY: Measures 10.9 cm in length.. There is no hydronephrosis. Extrarenal pelvis. No shadowing calculus, focal lesion or perinephric collection is demonstrated. LEFT KIDNEY: Measures 11.4 cm in length.. There is no hydronephrosis. No shadowing calculus, focal mass or perinephric collection is demonstrated. Small 9 mm simple cyst. URINARY BLADDER: No acute abnormality. US/Kidney and Bladder IMPRESSION: Normal renal ultrasound. Electronically Signed: Isaiah Aleman MD at 23:15 EDT ,
== END | disposition home or self-care (01) ==
PROVIDERS: PCP Family Medicine; Referring Provider Urology; Visit Provider Urology
DX: N39.0 Urinary tract infection, site not specified (principal)
CPT/HCPCS: 76770

== ENCOUNTER → 2023-08-24 | Outpatient (CLI) | payer MEDICARE, OTHER, SELFPAY ==
[2023-08-24 12:45] LABS: Vitamin D,25 Hydroxy 42.7 ng/mL
[2023-08-24 13:06] LABS: AST(SGOT) 16 U/L (15-37); Alanine Aminotransfer ALT/SGPT 19 U/L (13-56); Albumin, Serum 3.6 g/dL (3.2-5.0); Alkaline Phosphatase 57 U/L (45-117); Anion Gap 6 (5-15); BUN 21 mg/dL (7-18); BUN/Creat Ratio 28.8 RATIO (10-20); Calcium,Total 9.8 mg/dL (8.5-10.1); Chloride 104 mmol/L (98-107); Cholesterol 155 mg/dL (200); Creatinine, Serum 0.73 mg/dL (0.55-1.02); EST Glomerular Filtration Rate 81 mL/min (>60); Est Glom Filt Rate - Afr Amer 98 mL/min (>60); Globulin 3.7 g/dL (2.2-4.2); Glucose 119 mg/dL (74-106); High Density Lipoprotein 56 mg/dL; Potassium 4.2 mmol/L (3.5-5.1); Protein, Total 7.3 g/dL (6.4-8.2); Sodium Level 138 mmol/L (136-145); Triglycerides 151 mg/dL; Very Low Density Lipoprotein 30 mg/dL (5-40)
== END | disposition home or self-care (01) ==
LOC: MFPLAB 10:33
PROVIDERS: PCP Family Medicine; Visit Provider Family Medicine
DX: Z00.00 Encounter for general adult medical examination without abnormal findings (principal); E55.9 Vitamin D deficiency, unspecified; E78.5 Hyperlipidemia, unspecified
CPT/HCPCS: 36415; 80053; 80061; 82306

== ENCOUNTER → 2023-09-01 | Outpatient (CLI) | payer MEDICARE, OTHER, SELFPAY ==
--- NOTE | 2023-09-01 13:08 | BI_ITS ---
MAMMOGRAPHY - BILATERAL SCREENING 3-D TOMOSYNTHESIS REASON FOR EXAM: Female, 82 years old. SCREENING PERTINENT HISTORY: No significant family history. TECHNIQUE: 2-D mammograms and 3-D Tomosynthesis of the breast (s) were performed. CAD was performed. COMPARISON: 12/07/2021 FINDINGS: The breast composition is composed of scattered fibroglandular density. Scattered benign calcifications are seen. No dense spiculated masses or suspicious microcalcifications are identified. No architectural distortion is identified. There is no skin thickening or retraction. There has been no significant change since the prior study. BI/SCRN MAMM (CAD)W/EVELYN BILAT IMPRESSION: No mammographic signs of malignancy. Routine yearly mammograms recommended. ASSESSMENT CATEGORY: BIRADS Category 1: Negative. A letter regarding these results will be sent to the patient by the facility within 30 days. FOLLOW UP RECOMMENDATION: Yearly follow up mammogram recommended. (A) Approximately 10% of breast cancers are not detected by mammography. A normal mammogram should not delay biopsy of a clinically suspicious abnormality. Electronically Signed: Shawn Fernández MD at 15:35 EDT ,
== END | disposition home or self-care (01) ==
LOC: OPBI 13:06
PROVIDERS: PCP Family Medicine; Referring Provider Family Medicine; Visit Provider Family Medicine
DX: Z12.31 Encounter for screening mammogram for malignant neoplasm of breast (principal)
CPT/HCPCS: 77063; 77067

== ENCOUNTER 2023-09-05 15:30 | Outpatient (RCR) | payer MEDICARE, OTHER, SELFPAY ==
--- NOTE | 2023-07-28 14:06 | HP.PTEVAL_ITS ---
Patient's Visit Information Visit Information Visit Information: VANDANA CEJA is a 82 year old F referred to Physical Therapy by Dr. Isaiah Sims MD with a diagnosis of BPPV. Date of Evaluation: 07/28/23 Physical Therapist: Norbert Pleitez, DPT, OCS, CSCS Visit Plan Frequency: 1-2x /Week Duration: 2-4 Weeks Plan: weekly as needed for positional treatments and progressions, balance check. L byron treatment today due to positive test. Subjective Subjective: Mahi dtr present. dizzyness returned 2 days ago. Had ab initio etl developer stressful shot visit and that night it started. Was lying down on back. Typically sleeeps on side. Symptoms were getting up from couch and felt unsteady. Went to sleep and the next morning was bad again with unsteadyness. No problem sitting or lying down . Not unsteady prior to Monday. Was treated for dizzy unsteadyness back in October but was more spinning. This is similar just without spinning. Sleeping good. Needs to shop but could not this am. Objective Objective: Walks slowly with poor confidence but I into PT with obvious ir ritation. Trasnfers I and steps with rail I reciprocally. Good cervical aROM, good UE AROM and strength at 4/5 without pain. + L hallpike gus for 10 second up torsinal nystagmus, treated with L byron and then - HD test. Balance/Special Test Scores Functional Gait Assessment Score: 26 % Disability: 13.3400 Dizziness Score: 60 Goals Goal 1:: Pt feel steady and score 28 on FGA Goal Time Frame: 2-4 Weeks Goal 2:: Dizzyness abolished Goal Time Frame: 2-4 Weeks Goal 3:: 100% better form dizzyness. Goal Time Frame: 2-4 Weeks Goal 4:: 20or less on DHI Goal Time Frame: 2-4 Weeks Rehabilitation Potential Physical Therapy Diagnosis: positional dizzyness Rehabilitation Potential: Good Anticipated Interventions Patient/Client Instruction: Educate patient on: Condition and Risk Factors For the Purpose of:: To increase tolerance to activity/condition/position Therapeutic Exercise to Include: Balance training Comment: positional For the Purpose of:: To increase tolerance to activity/condition/position Text: Thank you for the opportunity to evaluate your patient. For Medicare and Medicare HMO plans, please review the plan of care and approve it. It will need to be FAXED BACK to us at [phone] for Medicare purposes. For Medicare only, by signing this I certify the plan of care. Please let me know if there are questions or concerns regarding this plan of care. Physician Signature: Date:
--- NOTE | 2023-08-24 13:50 | HP.PTREVAL ---
Re-Evaluation Intro: Dr. Isaiah Sims MD, It has been my pleasure to treat VANDANA CEJA over the last 4 visits for BPPV. Please see the progress note below for an update on the physical therapy plan of care! Subjective Subjective: 85% better. Still with quick movements like golfing gets quick unsteadiness but not having dizzyness. No falls.Doing exercises without a problem. Got some unsteadiness rolling L in bed and putting. Activities are pretty normal. Objective Objective/Function: - R HD + L HD for quick up torsional nystagmus 4 seconds and gone after byron L. Walking well and very active safely just still some symptoms with certain positions. Plan Plan Plan: every other week for positional and to monitor effects of home BD. Same goals new 4 week POC every other week. Fair prognosis but it is being stubborn. Balance/Gait/Functional tests Balance/Special Test Scores Functional Gait Assessment Score: 26 % Disability: 13.3400 Dizziness Score: 26 Goals Goals Goal 1:: Pt feel steady and score 28 on FGA Goal Time Frame: 2-4 Weeks Goal Progress: approp Goal 2:: Dizzyness abolished Goal Time Frame: 2-4 Weeks Goal Progress: Progressing, approp Goal 3:: 100% better form dizzyness. Goal Time Frame: 2-4 Weeks Goal Progress: 85%, steadiness? Goal 4:: 20or less on DHI Goal Time Frame: 2-4 Weeks Goal Progress: Progressing, appropo Anticipated Interventions Anticipated Interventions Patient/Client Instruction: Educate patient on: Condition and Risk Factors For the Purpose of:: To increase tolerance to activity/condition/position Therapeutic Exercise to Include: Balance training Comment: positional For the Purpose of:: To increase tolerance to activity/condition/position Re-Evaluation Ending Re-evaluation ending: Please do not hesitate to contact me at [phone] by phone or if you have questions or concerns regarding this new plan of care! Sincerely, Norbert Pleitez, DPT, OCS, CSCS
--- NOTE | 2023-09-05 15:39 | HP.PTDCSUM ---
Discharge Summary D/C summary: It has been my pleasure to treat VANDANA CEJA referred by Dr. Isaiah Sims MD, with the diagnosis of BPPV for a total of 5 visit(s). Discharge Date: 09/05/23 Please see the following information for a summary of their discharge status. Subjective Subjective: Did exercises for 2 days and then no dizzyness since. No dizzyness, no spinning, balance is good. Life is back to normal. Overall Improvement % Improvement: 100 Objective Objective/Function: - B hallpike gus - roll test FGA better and normal Goals Goal 1:: Pt feel steady and score 28 on FGA Goal Progress: Goal Met Goal 2:: Dizzyness abolished Goal Progress: Goal Met Goal 3:: 100% better form dizzyness. Goal Progress: Goal Met Goal 4:: 20or less on DHI Goal Progress: Goal Met Plan Plan: d/c D/C Information d/c sentence: If there are questions or concerns regarding this patient's physical therapy, please feel free to call me at [phone]. Thank you for the referral of this patient. Sincerely, Norbert Pleitez, DPT, OCS, CSCS Balance/Gait/Functional tests Balance/Special Test Scores Functional Gait Assessment Score: 29 % Disability: 3.3400 Dizziness Score: 0 Improvement % Improvement: 100
== END 2023-09-05 19:00 | disposition home or self-care (01) ==
LOC: PT 15:30
PROVIDERS: PCP Family Medicine; Visit Provider Otolaryngology
DX: H81.01 Meniere's disease, right ear (principal); H81.10 Benign paroxysmal vertigo, unspecified ear
CPT/HCPCS: 97161; 97530

== ENCOUNTER → 2024-08-16 | Outpatient (CLI) | payer MEDICARE, OTHER, SELFPAY ==
[2024-08-16 11:10] LABS: ALB/GLOB Ratio 1.4 RATIO (0.9-2.4); AST(SGOT) 22 U/L (<=31); Alanine Aminotransfer ALT/SGPT 18 U/L (<=34); Albumin, Serum 4.2 g/dL (3.4-4.8); Alkaline Phosphatase 66 U/L (35-104); Anion Gap 10 (5-15); BUN 18 mg/dL (4-19); BUN/Creat Ratio 21.2 RATIO (10-20); Carbon Dioxide 27.4 mmol/L (21.0-32.0); Chloride 97 mmol/L (98-108); Cholesterol 140 mg/dL (<=200); Creatinine, Serum 0.84 mg/dL (0.70-1.20); EST Glomerular Filtration Rate 69 (>60); Globulin 2.9 g/dL (2.2-4.2); Glucose 114 mg/dL (70-99); High Density Lipoprotein 47 mg/dL; Low Density Lipoprotein Calc. 64 mg/dL; Potassium 4.3 mmol/L (3.3-5.1); Protein, Total 7.1 g/dL (5.9-8.4); Sodium Level 135 mmol/L (133-145); Total Bilirubin 0.42 mg/dL (0.00-1.30); Triglycerides 147 mg/dL; Very Low Density Lipoprotein 29 mg/dL (5-40)
== END | disposition home or self-care (01) ==
LOC: MFPLAB 08:37
PROVIDERS: PCP Family Medicine; Referring Provider Family Medicine; Visit Provider Family Medicine
DX: Z00.00 Encounter for general adult medical examination without abnormal findings (principal)
CPT/HCPCS: 36415; 80053; 80061